=== PATIENT | female | born 2000 | race Hispanic/Latino ===

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

== ENCOUNTER → 2022-09-27 12:40 | Outpatient (CLI) | payer OTHER, MEDICAID, SELFPAY ==
[2022-09-27 15:13] LABS: Erythrocyte Sedimentation Rate 21 MM/HR (0-20)
[2022-09-30 14:37] LABS: ANA Screen, IFA Negative (.)
== END ==
PROVIDERS: Family Provider Family Medicine; PCP Family Medicine; Referring Provider Physician Assistant; Visit Provider Physician Assistant
DX: R70.0 Elevated erythrocyte sedimentation rate (principal); R76.8 Other specified abnormal immunological findings in serum
CPT/HCPCS: 36415; 85651; 86038

== ENCOUNTER → 2022-11-05 14:00 | Outpatient (CLI) | payer OTHER, MEDICAID, SELFPAY | PROVIDERS: Family Provider Family Medicine; PCP Family Medicine; Visit Provider Registered Nurse | DX: N89.8 Other specified noninflammatory disorders of vagina (principal) | CPT/HCPCS: 87210 ==